=== PATIENT | female | born 1990 | race American Indian/Alaskan Native ===

== ENCOUNTER 2016-12-14 17:33 | Emergency (ER) | payer OTHER ==
[2016-12-14 17:46] VITALS: RESP 18
[2016-12-14] MEDS ORDERED: Sodium Chloride 0.9% 1,000 ML IV STA (18:58)
[2016-12-14 19:24] LABS: BASO # 0.1 K/uL (0.0-0.2); BASO % 0.6 % (0.0-2.0); EOS % 0.3 % (0.0-4.0); HEMATOCRIT 38.2 % (34.0-47.0); LYMPH % 24.2 % (20.0-40.0); MEAN CELL VOLUME 91.9 fL (81.0-99.0); MEAN CORPUSCULAR HEMOGLOBIN 30.3 pg (27.0-31.0); MEAN CORPUSCULAR HGB CONC 32.9 g/dL (33.0-37.0); MEAN PLATELET VOLUME 7.9 fL (7.2-11.7); MONO # 0.7 K/uL (0.0-0.8); MONO % 8.3 % (0.0-10.0); WHITE BLOOD COUNT 8.4 K/uL (4.8-10.8)
[2016-12-14 19:28] LABS: RBC URINE 4 /hpf (0-3); URINE BACTERIA RARE (<OCC); URINE BILIRUBIN NEGATIVE (NEGATIVE); URINE COLOR Yellow (YELLOW); URINE GLUCOSE (UA) NORMAL (Normal); URINE KETONE NEGATIVE (NEGATIVE); URINE LEUKOCYTE ESTERASE NEG Leu/uL (Negative); URINE PROTEIN NEGATIVE (NEGATIVE); WBC URINE 1 /hpf (0-5)
[2016-12-14 19:29] LABS: URINE BLOOD 1+ (NEGATIVE)
[2016-12-14] MEDS ORDERED: Sodium Chloride 0.9% 1,000 ML ONE (19:32)
[2016-12-14 19:35] LABS: CHLORIDE 99 mmol/L (98-107)
[2016-12-14 19:36] LABS: POTASSIUM 3.2 mmol/L (3.6-5.2); SODIUM 141 mmol/L (132-148)
[2016-12-14 19:38] LABS: AST/SGOT 23 U/L (14-36); BILIRUBIN,TOTAL 0.2 mg/dL (0.2-1.3); CARBON DIOXIDE 26 mmol/L (22-30); GFR AFRICAN-AMERICAN > 60
[2016-12-14 19:39] LABS: ALB/GLOB RATIO 1.2 (1.0-2.1); ALKALINE PHOSPHATASE 74 U/L (38-126); ALT/SGPT 18 U/L (9-52); BLOOD UREA NITROGEN 13 mg/dL (7-17); CALCIUM 8.8 mg/dl (8.6-10.4); GLUCOSE,RANDOM 119 mg/dL (65-105); TOTAL PROTEIN 7.4 g/dL (6.3-8.3)
--- NOTE | 2016-12-14 20:11 | C.PDOC ---
History Of Present Illness Patient is a 26 year old female who presents to the ER with a complaint of a sharp, non-radiating mid lower abdominal pain that began this morning. Patient also reports mild SOB eariler today but not currently. Patient states having no past medical problems. Denies any nausea or vomiting. Denies cough, leg swelling , previous DVT/PE, recent travel, recent surgery or trauma, OCP use. Time Seen by Provider: 12/14/16 18:27 Chief Complaint (Nursing): GI Problem History Per: Patient History/Exam Limitations: no limitations Onset/Duration Of Symptoms: Hrs (Since morning) Current Symptoms Are (Timing): Still Present Location Of Pain/Discomfort: Other (Mid lower abdominal) Quality Of Discomfort: Sharp (non-radiating) Associated Symptoms: denies: Nausea, Vomiting Past Medical History Reviewed: Historical Data, Nursing Documentation, Vital Signs Vital Signs: Last Vital Signs Temp 98.4 F 12/14/16 17:41 Pulse 84 12/14/16 17:41 Resp 18 12/14/16 17:41 BP 135/84 12/14/16 17:41 Pulse Ox 100 12/14/16 20:16 Family History: States: Unknown Family Hx - Social History Hx Alcohol Use: No Hx Substance Use: No Review Of Systems Gastrointestinal: Negative for: Nausea, Vomiting Physical Exam - Physical Exam Additional Physical Exam Comments: Constitutional: No acute distress. Head: Normocephalic. Atraumatic. Eyes: PERRL. ENT: Moist mucous membranes. Neck: Supple. Cardiovascular: Regular rate. Radial pulses 2+ bilaterally. Chest: No tenderness. Respiratory: Clear to auscultation bilaterally. GI: Suprapubic tenderness Back: No CVA tenderness. Musculoskeletal: No tenderness or swelling of extremities. Skin: No rash. Neurologic: Alert, no focal deficit. ED Course And Treatment - Laboratory Results Result Diagrams: 12/14/16 19:21 12/14/16 19:21 O2 Sat by Pulse Oximetry: 100 (Room air) Pulse Ox Interpretation: Normal Medical Decision Making Medical Decision Making: Urine culture and POC urine test ordered. IV fluids, toradol IVP, and zofran IVP administered. Labs unremarkable. Patient states she feels better and is comfortable to go home. F/u PMD, instructed to return for worsening pain, fever, dyspnea, vomiting , or any other problem. Disposition - Disposition Disposition: HOME/ ROUTINE Disposition Time: 20:21 Condition: STABLE Prescriptions: Ibuprofen [Motrin] 1 tab PO Q6 #30 tab Instructions: Abdominal Pain (ED) - Clinical Impression Clinical Impression: Abdominal pain - Scribe Statement The provider has reviewed the documentation as recorded by the Scribmeek Turner All medical record entries made by the Sharonibe were at my direction and personally dictated by me. I have reviewed the chart and agree that the record accurately reflects my personal performance of the history, physical exam, medical decision making, and the department course for this patient. I have also personally directed, reviewed, and agree with the discharge instructions and disposition.
[2016-12-14 21:15] VITALS: BP 112/63; PULSE 80; TEMP 98.7; O2SAT 98
== END 2016-12-14 21:16 | disposition home or self-care (01) ==
LOC: C.ER 17:33
DX: R10.30 Lower abdominal pain, unspecified (principal)
CPT/HCPCS: 80053; 81001; 83690; 84702; 85025; 87086; 96361; 96374; 96375; 99285; J1885; J2405; J7040

== ENCOUNTER 2017-10-25 13:04 | Emergency (ER) | payer OTHER ==
[2017-10-25 13:43] VITALS: BMI 26.6
[2017-10-25 13:46] VITALS: BP 110/76; PULSE 107; RESP 18; TEMP 99.6; O2SAT 99
--- NOTE | 2017-10-25 14:10 | C.PDOC ---
History Of Present Illness NVD SINCE YEST. +SUPRAPUB PAIN. +CHILLS. "I THINK I HAVE THE FLU". 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 LMP 3 DAYS AGO. PSH NEG. NO UTI SX EXAM MILD DIST NONTOXIC HEENT NEG ABD +SUPRAPUB TEND MILD SOFT NO R/G GOOD TURGOR REMAINDER NEG Time Seen by Provider: 10/25/17 13:54 Chief Complaint (Nursing): Abdominal Pain History Per: Patient History/Exam Limitations: no limitations Onset/Duration Of Symptoms: Days Current Symptoms Are (Timing): Still Present Severity: Moderate Associated Symptoms: Nausea, Vomiting, Diarrhea Past Medical History Reviewed: Historical Data, Nursing Documentation, Vital Signs Vital Signs: Last Vital Signs Temp 99.6 F 10/25/17 13:43 Pulse 107 H 10/25/17 13:43 Resp 18 10/25/17 13:43 BP 110/76 10/25/17 13:43 Pulse Ox 99 10/25/17 16:57 - Medical History PMH: No Chronic Diseases Other Surgeries: Hx of surgeries Family History: States: No Known Family Hx - Social History Hx Alcohol Use: No Hx Substance Use: No - Immunization History Hx Tetanus Toxoid Vaccination: No Hx Influenza Vaccination: No Hx Pneumococcal Vaccination: No Review Of Systems Except As Marked, All Systems Reviewed And Found Negative. Constitutional: Positive for: Chills Gastrointestinal: Positive for: Nausea, Vomiting, Abdominal Pain, Diarrhea Genitourinary: Negative for: Dysuria, Hematuria Physical Exam - Physical Exam Appears: Non-toxic, Other (mild distress) Skin: Normal Color, Warm, Other (good turgor) Head: Atraumatic, Normacephalic Eye(s): bilateral: Normal Inspection Ear(s): Bilateral: Normal Nose: Normal Throat: Normal, No Erythema, No Exudate Gastrointestinal/Abdominal: Normal Exam, Soft, Tenderness (mild suprapubic tenderness) Neurological/Psych: Oriented x3, Normal Speech, Normal Motor, Normal Sensation ED Course And Treatment - Laboratory Results Urine POC: Negative O2 Sat by Pulse Oximetry: 99 (RA) Pulse Ox Interpretation: Normal Medical Decision Making Medical Decision Making: Plan: --Toradol IM --Zofran PO --UA Disposition Counseled Patient/Family Regarding: Studies Performed, Diagnosis, Need For Followup, Rx Given - Disposition Referrals: YOUR,PMD [Other] Disposition: HOME/ ROUTINE Disposition Time: :59 Condition: IMPROVED Prescriptions: Ibuprofen [Motrin] 600 mg PO Q6 #30 tab Ondansetron [Zofran Odt] 4 mg PO TID PRN #9 odt PRN Reason: Nausea/Vomiting Oseltamivir [Tamiflu] 75 mg PO BID #10 cap Instructions: Viral Gastroenteritis, Flu, Adult (DC) Forms: [facility] (Lao), Work Excuse - Clinical Impression Clinical Impression: Abdominal pain, Vomiting, Diarrhea - Scribe Statement The provider has reviewed the documentation as recorded by the Rafael Mccann Provider Attestation: All medical record entries made by the Rafael were at my direction and personally dictated by me. I have reviewed the chart and agree that the record accurately reflects my personal performance of the history, physical exam, medical decision making, and the department course for this patient. I have also personally directed, reviewed, and agree with the discharge instructions and disposition.
[2017-10-25 15:31] LABS: SQUAMOUS EPITHIAL 5 /hpf (0-5); URINE BACTERIA RARE (<OCC); URINE BILIRUBIN NEGATIVE (NEGATIVE); URINE BLOOD 3+ (NEGATIVE); URINE CLARITY Hazy (Clear); URINE COLOR Yellow (YELLOW); URINE GLUCOSE (UA) NORMAL (Normal); URINE HYALINE CAST 0-2 /lpf (0-2); URINE LEUKOCYTE ESTERASE NEG Leu/uL (Negative); URINE NITRATE NEGATIVE (NEGATIVE); URINE PROTEIN 1+ mg/dL (NEGATIVE)
== END 2017-10-25 16:32 | disposition home or self-care (01) ==
LOC: C.ER 13:04
DX: R10.30 Lower abdominal pain, unspecified (principal); R11.10 Vomiting, unspecified; R19.7 Diarrhea, unspecified
CPT/HCPCS: 81001; 87086; 96372; 99283; J1885